=== PATIENT | female | born 1960 | race Caucasian/White ===

== ENCOUNTER 2021-11-10 15:13 | Inpatient (IN) | payer OTHER ==
[2021-11-10] MEDS ORDERED: SODIUM CHLORIDE 0.9% 500 ML INFUS.BAG IV ONE ×2 (16:06→17:23)
[2021-11-10 16:21] LABS: VENOUS BASE EXCESS -6.5 mmol/L (-2-2); VENOUS O2 SATURATION 63.2 % (70-80); VENOUS PCO2 36.1 mmHg (38-52); VENOUS PH 7.331 (7.310-7.410)
[2021-11-10 16:32] LABS: BASO % 0.4 % (0-2.0); HEMATOCRIT 33.4 % (32.4-45.2); HEMOGLOBIN 11.3 GM/dL (10.7-15.3); LYMPH % 5.6 % (8-40); MCH 30.7 pg (25.7-33.7); MEAN CELL VOLUME 90.4 fl (80-96); MEAN PLT VOLUME 9.6 fl (7.5-11.1); MONO % 1.7 % (3.8-10.2); NEUT % 92.3 % (42.8-82.8); PLATELET COUNT 266 10^3/uL (134-434); RBC 3.69 M/mm3 (3.60-5.2); RDW 13.9 % (11.6-15.6); WHITE BLOOD COUNT 8.5 K/mm3 (4.0-10.0)
[2021-11-10 16:38] LABS: INR 0.89 (0.83-1.09); PROTHROMBIN TIME (PATIENT) 10.2 SEC (9.7-13.0)
[2021-11-10 16:40] LABS: ACTIVATED PTT 30.1 SECONDS (25.2-36.5)
[2021-11-10 16:43] LABS: EPI CELLS 3 /uL (0-25.1); HYALINE CASTS 2 /uL (0-3.1); URINE APPEARANCE CLEAR; URINE BILIRUBIN NEGATIVE (NEGATIVE); URINE COLOR YELLOW; URINE GLUCOSE (UA) 3+ (NEGATIVE); URINE KETONE NEGATIVE (NEGATIVE); URINE LEUK ESTERASE 1+ (NEGATIVE); URINE NITRITE POSITIVE (NEGATIVE); URINE PROTEIN NEGATIVE (NEGATIVE); URINE RBC 5 /uL (0-23.9); URINE UROBILINOGEN 0.2 mg/dL (0.2-1.0); URINE WBC 159 /uL (0-25.8)
[2021-11-10 16:45] LABS: CHLORIDE 88 mmol/L (98-107)
[2021-11-10 16:47] LABS: CALCIUM 9.2 mg/dL (8.5-10.1)
[2021-11-10 16:48] LABS: ALBUMIN 3.1 g/dl (3.4-5.0); BLOOD UREA NITROGEN 40.3 mg/dL (7-18); CO2 20 mmol/L (21-32); MAGNESIUM 1.7 mg/dL (1.8-2.4)
[2021-11-10 16:51] LABS: CREATININE 1.9 mg/dL (0.55-1.3); PHOSPHOROUS 4.5 mg/dL (2.5-4.9); SGOT/AST 71 U/L (15-37); SGPT/ALT 26 U/L (13-61)
[2021-11-10 16:52] LABS: BILIRUBIN,TOTAL 0.6 mg/dL (0.2-1)
[2021-11-10 16:54] LABS: ALK PHOS 201 U/L (45-117)
[2021-11-10 17:09] LABS: ANISOCYTOSIS 1+; MACROCYTOSIS 0
[2021-11-10 17:26] LABS: URINE BACTERIA 778 /uL (0-1359)
[2021-11-10] MEDS ORDERED: CEFTRIAXONE 1 GM in DEXTROSE 5%-WATER - 50 ML IVPB ONE (18:16)
[2021-11-10] MEDS ORDERED: ACETAMINOPHEN 325 MG TABLET (FP) PO PRN (18:22)
[2021-11-10] MEDS ORDERED: INSULIN REGULAR HUMAN 100 UNITS/ML *VIAL IVPUSH ONE (18:24)
[2021-11-10] MEDS ORDERED: CEFTRIAXONE 1 GM/50 ML BAG ONE (18:32)
[2021-11-10] MEDS ORDERED: INSULIN REGULAR HUMAN 100 UNITS/ML *VIAL ONE (18:33)
[2021-11-10 18:44] LABS: ANION GAP 11 MMOL/L (8-16); GLUCOSE,RANDOM 696 mg/dL (74-106); SODIUM 118 mmol/L (136-145)
[2021-11-10] MEDS ORDERED: MAGNESIUM SULF 50% (8.12 MEQ/2 ML-1 GM VIAL) IVPB ONE (18:47)
[2021-11-10] MEDS ORDERED: MAGNESIUM OXIDE 400 MG TABLET (FP) PO ONE (18:55)
[2021-11-10 19:02] LABS: CHLORIDE 94 mmol/L (98-107); SODIUM 125 mmol/L (136-145)
[2021-11-10 19:04] LABS: CALCIUM 8.8 mg/dL (8.5-10.1)
[2021-11-10 19:05] LABS: ALBUMIN 3.3 g/dl (3.4-5.0); BLOOD UREA NITROGEN 40.6 mg/dL (7-18); CO2 21 mmol/L (21-32)
[2021-11-10 19:08] LABS: CREATININE 1.8 mg/dL (0.55-1.3); SGOT/AST 19 U/L (15-37); SGPT/ALT 20 U/L (13-61)
[2021-11-10 19:10] LABS: BILIRUBIN,TOTAL 0.4 mg/dL (0.2-1); TOT PROT 7.4 g/dl (6.4-8.2)
[2021-11-10 19:11] LABS: ALK PHOS 197 U/L (45-117)
[2021-11-10] MEDS: SODIUM CHLORIDE 1,000 ML IV SCH (19:12)
[2021-11-10 19:18] LABS: ANION GAP 10 MMOL/L (8-16); GLUCOSE,RANDOM 657 mg/dL (74-106)
[2021-11-10] MEDS ORDERED: MAGNESIUM OXIDE 400 MG TABLET (FP) ONE (19:22)
[2021-11-10] MEDS ORDERED: MAGNESIUM SULFATE IN WATER 2 GM/50 ML IVPB IVPB ONE (19:23)
[2021-11-10] MEDS ORDERED: CALCIUM GLUC IN NACL, ISO-OSM 1 GM/50 ML BAG IVPB ONE ×2 (21:36→22:14)
[2021-11-10 21:44] LABS: CHLORIDE 98 mmol/L (98-107); SODIUM 127 mmol/L (136-145)
[2021-11-10 21:45] LABS: CALCIUM 8.5 mg/dL (8.5-10.1)
[2021-11-10 21:46] LABS: BLOOD UREA NITROGEN 42.2 mg/dL (7-18); CO2 16 mmol/L (21-32)
[2021-11-10 21:49] LABS: CREATININE 1.9 mg/dL (0.55-1.3); SGOT/AST 17 U/L (15-37); SGPT/ALT 18 U/L (13-61)
[2021-11-10 21:51] LABS: BILIRUBIN,TOTAL 0.2 mg/dL (0.2-1); TOT PROT 6.7 g/dl (6.4-8.2)
[2021-11-10 21:52] LABS: ALK PHOS 181 U/L (45-117)
[2021-11-10 21:54] VITALS: RESP 18
[2021-11-10 21:54] LABS: ANION GAP 12 MMOL/L (8-16); GLUCOSE,RANDOM 641 mg/dL (74-106)
[2021-11-10] MEDS ORDERED: SODIUM ZIRCONIUM CYCLOSILICATE (LOKELMA) 5 GM PACKET ONE (22:13)
[2021-11-10] MEDS: SODIUM ZIRCONIUM CYCLOSILICATE (LOKELMA) 5 GM PACKET PO SCH (22:34)
[2021-11-10] MEDS: INSULIN (NOVOLOG) ASPART 100 UNITS/ML 10ML VIAL SQ SCH (22:40)
[2021-11-10 23:29] VITALS: BMI 22.6
[2021-11-11] MEDS ORDERED: INSULIN (NOVOLOG) ASPART 100 UNITS/ML 10ML VIAL SQ ONE (00:45)
[2021-11-11] MEDS: INSULIN (NOVOLOG) ASPART 100 UNITS/ML 10ML VIAL SQ SCH ×4 (06:44→21:23)
[2021-11-11 10:03] LABS: BASO % 0.3 % (0-2.0); HEMATOCRIT 31.6 % (32.4-45.2); HEMOGLOBIN 10.6 GM/dL (10.7-15.3); LYMPH % 13.6 % (8-40); MCH 29.7 pg (25.7-33.7); MCHC 33.7 g/dl (32.0-36.0); MEAN CELL VOLUME 88.2 fl (80-96); MEAN PLT VOLUME 9.1 fl (7.5-11.1); MONO % 7.8 % (3.8-10.2); NEUT % 78.3 % (42.8-82.8); PLATELET COUNT 308 10^3/uL (134-434); RBC 3.58 M/mm3 (3.60-5.2); RDW 13.9 % (11.6-15.6); WHITE BLOOD COUNT 11.5 K/mm3 (4.0-10.0)
[2021-11-11] MEDS: SODIUM ZIRCONIUM CYCLOSILICATE (LOKELMA) 5 GM PACKET PO SCH (10:11)
[2021-11-11] MEDS: ENOXAPARIN NA (PORCINE) 30 MG/0.3 ML DISP.SYRIN SQ SCH (10:11)
[2021-11-11 12:31] LABS: CALCIUM 9.3 mg/dL (8.5-10.1)
[2021-11-11 12:32] LABS: BLOOD UREA NITROGEN 36.3 mg/dL (7-18)
[2021-11-11 12:35] LABS: CREATININE 1.5 mg/dL (0.55-1.3)
[2021-11-11 12:36] LABS: BILIRUBIN,TOTAL 0.2 mg/dL (0.2-1); TOT PROT 6.8 g/dl (6.4-8.2)
[2021-11-11] MEDS: SODIUM CHLORIDE 1,000 ML IV SCH ×2 (13:35→21:16)
[2021-11-11] MEDS: CEFUROXIME AXETIL 250 MG TABLET PO SCH (21:16)
[2021-11-12] MEDS: SODIUM CHLORIDE 1,000 ML IV SCH (02:49)
[2021-11-12] MEDS: INSULIN (NOVOLOG) ASPART 100 UNITS/ML 10ML VIAL SQ SCH ×2 (06:22→11:27)
[2021-11-12 08:30] VITALS: BP 145/75; PULSE 84; TEMP 98.5
[2021-11-12] MEDS: CEFUROXIME AXETIL 250 MG TABLET PO SCH (09:08)
[2021-11-12] MEDS: ENOXAPARIN NA (PORCINE) 30 MG/0.3 ML DISP.SYRIN SQ SCH (09:08)
[2021-11-12] MEDS ORDERED: INSULIN (NOVOLOG) ASPART 100 UNITS/ML 10ML VIAL ONE (11:26)
[2021-11-12] MEDS ORDERED: SODIUM ZIRCONIUM CYCLOSILICATE (LOKELMA) 5 GM PACKET PO SCH (14:30)
== END 2021-11-12 15:31 | disposition home or self-care (01) | DRG 638 ==
LOC: JER 15:13 → JERBED 18:15 → J6S 23:38
PROVIDERS: ADMIT Internal Medicine; ATTEND Internal Medicine
DX: E11.65 Type 2 diabetes mellitus with hyperglycemia (principal); E87.1 Hypo-osmolality and hyponatremia; N17.9 Acute kidney failure, unspecified; N39.0 Urinary tract infection, site not specified; E87.5 Hyperkalemia; E86.0 Dehydration
CPT/HCPCS: 36415; 76775-TC; 80053; 81003; 82010; 82550; 82553; 82803; 82962; 83605; 83735; 83880; 84100; 84132; 84484; 85025; 85610; 85730; 87040; 87086; 93005; 93010; 93971-TC; 99285-25; C9803-CS; U0003; U0005

== ENCOUNTER 2021-11-18 08:32 | Emergency (ER) | payer OTHER ==
[2021-11-18 08:46] VITALS: BMI 22.8
[2021-11-18] MEDS ORDERED: ONDANSETRON 4 MG/2 ML VIAL IVPUSH ONE (09:39)
[2021-11-18] MEDS ORDERED: SODIUM CHLORIDE 0.9% 500 ML INFUS.BAG IV ONE (09:39)
[2021-11-18] MEDS ORDERED: ONDANSETRON 4 MG/2 ML VIAL ONE (10:13)
[2021-11-18 10:27] LABS: BASO % 0.5 % (0-2.0); EOS % 1.2 % (0-4.5); HEMATOCRIT 33.2 % (32.4-45.2); HEMOGLOBIN 11.8 GM/dL (10.7-15.3); LYMPH % 26.3 % (8-40); MCH 29.5 pg (25.7-33.7); MCHC 35.6 g/dl (32.0-36.0); MEAN PLT VOLUME 7.7 fl (7.5-11.1); MONO % 10.2 % (3.8-10.2); NEUT % 61.8 % (42.8-82.8); PLATELET COUNT 384 10^3/uL (134-434); RDW 13.3 % (11.6-15.6); WHITE BLOOD COUNT 6.5 K/mm3 (4.0-10.0)
[2021-11-18 10:40] LABS: ALBUMIN 3.6 g/dl (3.4-5.0); BLOOD UREA NITROGEN 20.6 mg/dL (7-18); CALCIUM 9.2 mg/dL (8.5-10.1); VENOUS BASE EXCESS 5.4 mmol/L (-2-2); VENOUS O2 SATURATION 80.3 % (70-80); VENOUS PCO2 39.9 mmHg (38-52); VENOUS PH 7.483 (7.310-7.410)
[2021-11-18 10:41] LABS: MAGNESIUM 1.4 mg/dL (1.8-2.4)
[2021-11-18 10:43] LABS: CREATININE 1.1 mg/dL (0.55-1.3)
[2021-11-18 10:45] LABS: BILIRUBIN,TOTAL 0.5 mg/dL (0.2-1); TOT PROT 7.6 g/dl (6.4-8.2)
[2021-11-18] MEDS ORDERED: MAG HYDROX/AL HYDROX/SIMETH -MYLANTA- ORAL SUSPENSION PO ONE (10:54)
[2021-11-18] MEDS ORDERED: FAMOTIDINE 20 MG/50 ML IVPB 20 MG/50 ML MG IVPB ONE ×2 (10:54→11:01)
[2021-11-18] MEDS ORDERED: MAG HYDROX/AL HYDROX/SIMETH 30 ML UNIT-DOSE CUP ONE (11:01)
[2021-11-18] MEDS ORDERED: MAGNESIUM SULF 50% (8.12 MEQ/2 ML-1 GM VIAL) IVPB ONE (11:11)
[2021-11-18] MEDS ORDERED: MAGNESIUM 1GM/D5W - 1 GM/100 ML IVPB IVPB ONE (11:39)
[2021-11-18 12:14] LABS: EPI CELLS 1 /uL (0-25.1); HYALINE CASTS 0 /uL (0-3.1); PH,URINE 7.5 (5.0-8.0); URINE APPEARANCE CLEAR; URINE BACTERIA 8735 /uL (0-1359); URINE BILIRUBIN NEGATIVE (NEGATIVE); URINE COLOR YELLOW; URINE GLUCOSE (UA) NEGATIVE (NEGATIVE); URINE KETONE NEGATIVE (NEGATIVE); URINE LEUK ESTERASE 1+ (NEGATIVE); URINE NITRITE NEGATIVE (NEGATIVE); URINE PROTEIN NEGATIVE (NEGATIVE); URINE RBC 9 /uL (0-23.9); URINE UROBILINOGEN 0.2 mg/dL (0.2-1.0); URINE WBC 181 /uL (0-25.8)
[2021-11-18 12:19] LABS: CALCIUM 8.1 mg/dL (8.5-10.1)
[2021-11-18 17:15] VITALS: BP 107/59; PULSE 80; RESP 16; TEMP 98
== END 2021-11-18 17:00 | disposition home or self-care (01) ==
LOC: JER 08:32
PROC: 3E033GC Introduction of Other Therapeutic Substance into Peripheral Vein, Percutaneous Approach (ICD-10-PCS; principal; 2021-11-18)
DX: K57.92 Diverticulitis of intestine, part unspecified, without perforation or abscess without bleeding (principal); N83.201 Unspecified ovarian cyst, right side; N39.0 Urinary tract infection, site not specified
CPT/HCPCS: 36415; 71045-TC-FY; 74177-TC; 80048; 80053; 81003; 82010; 82803; 82962; 83605; 83690; 83735; 84484; 85025; 87086; 87186; 93005; 93010; 99285-25

== ENCOUNTER 2021-11-20 09:53 | Inpatient (IN) | payer OTHER ==
[2021-11-20] MEDS ORDERED: SODIUM CHLORIDE 0.9% 500 ML INFUS.BAG IV ONE (11:19)
[2021-11-20 12:23] LABS: BASO % 0.2 % (0-2.0); HEMATOCRIT 29.9 % (32.4-45.2); HEMOGLOBIN 10.6 GM/dL (10.7-15.3); LYMPH % 27.1 % (8-40); MCH 30.1 pg (25.7-33.7); MCHC 35.5 g/dl (32.0-36.0); MEAN CELL VOLUME 84.6 fl (80-96); MEAN PLT VOLUME 7.8 fl (7.5-11.1); MONO % 7.5 % (3.8-10.2); NEUT % 64.2 % (42.8-82.8); PLATELET COUNT 350 10^3/uL (134-434); RBC 3.54 M/mm3 (3.60-5.2); RDW 13.4 % (11.6-15.6); WHITE BLOOD COUNT 7.3 K/mm3 (4.0-10.0)
[2021-11-20] MEDS ORDERED: ACETAMINOPHEN 1000 MG/100 ML BAG IVPB ONE (12:24)
[2021-11-20] MEDS ORDERED: PIPERACILLIN/TAZOB 3.375 GM 3.375 GM in DEXTROSE 5%-WATER - 50 ML IVPB ONE (12:24)
[2021-11-20 12:29] LABS: EPI CELLS 12 /uL (0-25.1); HYALINE CASTS 0 /uL (0-3.1); PH,URINE 5.5 (5.0-8.0); URINE APPEARANCE CLOUDY; URINE BACTERIA 3618 /uL (0-1359); URINE BILIRUBIN NEGATIVE (NEGATIVE); URINE COLOR YELLOW; URINE GLUCOSE (UA) NEGATIVE (NEGATIVE); URINE KETONE NEGATIVE (NEGATIVE); URINE LEUK ESTERASE 3+ (NEGATIVE); URINE NITRITE NEGATIVE (NEGATIVE); URINE PROTEIN TRACE (NEGATIVE); URINE RBC 25 /uL (0-23.9); URINE UROBILINOGEN 0.2 mg/dL (0.2-1.0); URINE WBC 1592 /uL (0-25.8)
[2021-11-20 12:44] LABS: CALCIUM 8.7 mg/dL (8.5-10.1)
[2021-11-20 12:45] LABS: ALBUMIN 3.4 g/dl (3.4-5.0); BLOOD UREA NITROGEN 29.6 mg/dL (7-18)
[2021-11-20 12:48] LABS: CREATININE 2.9 mg/dL (0.55-1.3)
[2021-11-20 12:49] LABS: BILIRUBIN,TOTAL 0.4 mg/dL (0.2-1); TOT PROT 6.8 g/dl (6.4-8.2)
[2021-11-20] MEDS ORDERED: PIPERACILLIN/TAZOB 2.25 GM 2.25 GM in DEXTROSE 5%-WATER - 50 ML IVPB ONE (12:55)
[2021-11-20] MEDS ORDERED: ACETAMINOPHEN INJECTION 100 ML IVPB ONE (12:58)
[2021-11-20] MEDS ORDERED: MEROPENEM 500 MG in DEXTROSE 5%-WATER 100 ML IVPB ONE (13:17)
[2021-11-20] MEDS ORDERED: MEROPENEM 500 MG VIAL (RESTRICTED TO ID) IVPB ONE (13:50)
[2021-11-20] MEDS ORDERED: ACETAMINOPHEN 1000 MG/100 ML BAG IVPB PRN (14:48)
[2021-11-20] MEDS ORDERED: PANTOPRAZOLE 40 MG TABLET PO ONE (16:47)
[2021-11-20] MEDS: PANTOPRAZOLE 40 MG TABLET PO SCH (16:58)
[2021-11-20] MEDS ORDERED: SODIUM CHLORIDE 1,000 ML IV SCH (17:00)
[2021-11-20] MEDS: INSULIN SLIDING SCALE (NOVOLOG) 1 VIAL SQ SCH (18:21)
[2021-11-20] MEDS ORDERED: ONDANSETRON 4 MG/2 ML VIAL IVPUSH ONE ×2 (18:25→23:03)
[2021-11-20 18:31] LABS: BLOOD UREA NITROGEN 26.9 mg/dL (7-18); CALCIUM 8.2 mg/dL (8.5-10.1)
[2021-11-20 18:35] LABS: CREATININE 2.8 mg/dL (0.55-1.3)
[2021-11-20] MEDS ORDERED: ONDANSETRON 4 MG/2 ML VIAL ONE ×2 (19:19→23:04)
[2021-11-20] MEDS ORDERED: HEPARIN NA (PORCINE) 5,000 UNITS/ML 1ML VIAL ONE (22:09)
[2021-11-20] MEDS: HEPARIN NA (PORCINE) 5,000 UNITS/ML 1ML VIAL SQ SCH (22:15)
[2021-11-21] MEDS ORDERED: ACETAMINOPHEN INJECTION 100 ML IVPB ONE
[2021-11-21] MEDS ORDERED: MEROPENEM 500 MG in DEXTROSE 5%-WATER 100 ML IVPB SCH (02:00)
[2021-11-21] MEDS ORDERED: MEROPENEM 500 MG VIAL (RESTRICTED TO ID) IVPB ONE (02:38)
[2021-11-21] MEDS ORDERED: HEPARIN NA (PORCINE) 5,000 UNITS/ML 1ML VIAL ONE (06:04)
[2021-11-21] MEDS: HEPARIN NA (PORCINE) 5,000 UNITS/ML 1ML VIAL SQ SCH ×3 (06:11→21:14)
[2021-11-21 07:08] LABS: BLOOD UREA NITROGEN 27.4 mg/dL (7-18); MAGNESIUM 1.7 mg/dL (1.8-2.4)
[2021-11-21 07:11] LABS: CREATININE 3.2 mg/dL (0.55-1.3); PHOSPHOROUS 4.9 mg/dL (2.5-4.9)
[2021-11-21] MEDS: INSULIN SLIDING SCALE (NOVOLOG) 1 VIAL SQ SCH ×3 (08:16→17:42)
[2021-11-21] MEDS: SODIUM CHLORIDE 1,000 ML IV SCH (09:30)
[2021-11-21] MEDS: PANTOPRAZOLE 40 MG TABLET PO SCH (12:10)
[2021-11-21 12:40] LABS: BASO % 0.9 % (0-2.0); EOS % 0.7 % (0-4.5); HEMOGLOBIN 10.6 GM/dL (10.7-15.3); MCHC 35.5 g/dl (32.0-36.0); MEAN CELL VOLUME 84.5 fl (80-96); MEAN PLT VOLUME 8.7 fl (7.5-11.1); MONO % 6.2 % (3.8-10.2); NEUT % 69.2 % (42.8-82.8); PLATELET COUNT 330 10^3/uL (134-434); RBC 3.55 M/mm3 (3.60-5.2); RDW 13.5 % (11.6-15.6); WHITE BLOOD COUNT 8.1 K/mm3 (4.0-10.0)
[2021-11-21] MEDS: ERTAPENEM SODIUM 0.5 GM in SODIUM CHLORIDE 50 ML IVPB SCH (13:42)
[2021-11-21 15:01] VITALS: BMI 23.2
[2021-11-21] MEDS ORDERED: DEXTROSE 50%-WATER - 25 GM/50 ML VIAL IVPUSH PRN (20:04)
[2021-11-21] MEDS: D5-1/2NS+10 MEQ KCL - 10 MEQ/1,000 ML INFUS.BAG IV SCH (21:13)
[2021-11-22] MEDS: HEPARIN NA (PORCINE) 5,000 UNITS/ML 1ML VIAL SQ SCH ×3 (06:16→21:18)
[2021-11-22] MEDS: INSULIN SLIDING SCALE (NOVOLOG) 1 VIAL SQ SCH ×3 (06:17→16:44)
[2021-11-22] MEDS: D5-1/2NS+10 MEQ KCL - 10 MEQ/1,000 ML INFUS.BAG IV SCH (06:54)
[2021-11-22] MEDS: PANTOPRAZOLE 40 MG TABLET PO SCH (10:03)
[2021-11-22] MEDS: ERTAPENEM SODIUM 0.5 GM in SODIUM CHLORIDE 50 ML IVPB SCH (10:03)
[2021-11-22 10:36] LABS: BASO % 0.6 % (0-2.0); EOS % 0.8 % (0-4.5); HEMATOCRIT 28.7 % (32.4-45.2); HEMOGLOBIN 10.1 GM/dL (10.7-15.3); LYMPH % 24.6 % (8-40); MCH 30.8 pg (25.7-33.7); MCHC 35.2 g/dl (32.0-36.0); MEAN CELL VOLUME 87.4 fl (80-96); MEAN PLT VOLUME 8.3 fl (7.5-11.1); MONO % 8.2 % (3.8-10.2); NEUT % 65.8 % (42.8-82.8); PLATELET COUNT 301 10^3/uL (134-434); RBC 3.29 M/mm3 (3.60-5.2); RDW 13.4 % (11.6-15.6); WHITE BLOOD COUNT 6.1 K/mm3 (4.0-10.0)
[2021-11-22] MEDS: SODIUM CHLORIDE 1,000 ML IV SCH (10:58)
[2021-11-22 11:07] LABS: ALBUMIN 2.7 g/dl (3.4-5.0); BLOOD UREA NITROGEN 28.2 mg/dL (7-18)
[2021-11-22 11:10] LABS: CREATININE 3.8 mg/dL (0.55-1.3)
[2021-11-22 11:11] LABS: TOT PROT 5.6 g/dl (6.4-8.2)
[2021-11-22 11:12] LABS: BILIRUBIN,TOTAL 0.2 mg/dL (0.2-1)
[2021-11-22] MEDS: BANATROL PLUS POWDER PACKET PO SCH ×2 (17:50→21:17)
[2021-11-22 18:24] LABS: EPI CELLS 12 /uL (0-25.1); HYALINE CASTS 0 /uL (0-3.1); PH,URINE 6.5 (5.0-8.0); URINE APPEARANCE CLEAR; URINE BACTERIA 23 /uL (0-1359); URINE BILIRUBIN NEGATIVE (NEGATIVE); URINE COLOR YELLOW; URINE GLUCOSE (UA) TRACE (NEGATIVE); URINE KETONE NEGATIVE (NEGATIVE); URINE LEUK ESTERASE TRACE (NEGATIVE); URINE NITRITE NEGATIVE (NEGATIVE); URINE PROTEIN NEGATIVE (NEGATIVE); URINE UROBILINOGEN 0.2 mg/dL (0.2-1.0); URINE WBC 14 /uL (0-25.8)
[2021-11-22 18:35] LABS: CREATININE, URINE RANDOM < 13.0 mg/dL (30-150)
[2021-11-22 23:22] LABS: URINE RBC 379.8 /uL (0-23.9)
[2021-11-23] MEDS: HEPARIN NA (PORCINE) 5,000 UNITS/ML 1ML VIAL SQ SCH ×3 (06:30→21:44)
[2021-11-23] MEDS: INSULIN SLIDING SCALE (NOVOLOG) 1 VIAL SQ SCH ×3 (06:35→16:49)
[2021-11-23] MEDS: BANATROL PLUS POWDER PACKET PO SCH ×2 (06:36→21:44)
[2021-11-23 08:10] LABS: BASO % 0.5 % (0-2.0); EOS % 1.7 % (0-4.5); HEMATOCRIT 30.4 % (32.4-45.2); HEMOGLOBIN 10.4 GM/dL (10.7-15.3); LYMPH % 31.6 % (8-40); MCH 29.5 pg (25.7-33.7); MCHC 34.2 g/dl (32.0-36.0); MEAN CELL VOLUME 86.3 fl (80-96); MEAN PLT VOLUME 8.2 fl (7.5-11.1); MONO % 8.6 % (3.8-10.2); NEUT % 57.6 % (42.8-82.8); PLATELET COUNT 356 10^3/uL (134-434); RBC 3.53 M/mm3 (3.60-5.2); RDW 13.5 % (11.6-15.6); WHITE BLOOD COUNT 5.1 K/mm3 (4.0-10.0)
[2021-11-23 08:29] LABS: CALCIUM 8.9 mg/dL (8.5-10.1)
[2021-11-23 08:30] LABS: ALBUMIN 3.2 g/dl (3.4-5.0); BLOOD UREA NITROGEN 27.4 mg/dL (7-18); MAGNESIUM 1.9 mg/dL (1.8-2.4)
[2021-11-23 08:33] LABS: CREATININE 3.5 mg/dL (0.55-1.3); PHOSPHOROUS 4.3 mg/dL (2.5-4.9)
[2021-11-23 08:34] LABS: BILIRUBIN,TOTAL 0.3 mg/dL (0.2-1); TOT PROT 6.4 g/dl (6.4-8.2)
[2021-11-23] MEDS: ERTAPENEM SODIUM 0.5 GM in SODIUM CHLORIDE 50 ML IVPB SCH (09:31)
[2021-11-23] MEDS: PANTOPRAZOLE 40 MG TABLET PO SCH (09:31)
[2021-11-23] MEDS: SODIUM CHLORIDE 1,000 ML IV SCH ×2 (09:33→17:16)
[2021-11-24] MEDS: BANATROL PLUS POWDER PACKET PO SCH ×3 (06:35→23:40)
[2021-11-24] MEDS: INSULIN SLIDING SCALE (NOVOLOG) 1 VIAL SQ SCH ×3 (06:35→16:25)
[2021-11-24] MEDS: HEPARIN NA (PORCINE) 5,000 UNITS/ML 1ML VIAL SQ SCH ×4 (06:35→23:40)
[2021-11-24] MEDS: SODIUM CHLORIDE 1,000 ML IV SCH ×3 (06:43→16:26)
[2021-11-24 08:43] LABS: BASO % 0.7 % (0-2.0); EOS % 1.9 % (0-4.5); HEMATOCRIT 31.4 % (32.4-45.2); HEMOGLOBIN 10.6 GM/dL (10.7-15.3); LYMPH % 35.1 % (8-40); MCH 29.3 pg (25.7-33.7); MCHC 33.7 g/dl (32.0-36.0); MEAN PLT VOLUME 8.5 fl (7.5-11.1); MONO % 7.2 % (3.8-10.2); NEUT % 55.1 % (42.8-82.8); PLATELET COUNT 343 10^3/uL (134-434); RBC 3.61 M/mm3 (3.60-5.2); RDW 13.7 % (11.6-15.6); WHITE BLOOD COUNT 5.6 K/mm3 (4.0-10.0)
[2021-11-24 09:00] LABS: CALCIUM 8.8 mg/dL (8.5-10.1)
[2021-11-24 09:01] LABS: BLOOD UREA NITROGEN 20.6 mg/dL (7-18)
[2021-11-24 09:07] LABS: CREATININE 2.8 mg/dL (0.55-1.3)
[2021-11-24] MEDS: PANTOPRAZOLE 40 MG TABLET PO SCH (09:46)
[2021-11-24] MEDS: ERTAPENEM SODIUM 0.5 GM in SODIUM CHLORIDE 50 ML IVPB SCH (10:28)
[2021-11-25] MEDS: SODIUM CHLORIDE 1,000 ML IV SCH ×3 (02:19→21:53)
[2021-11-25] MEDS: BANATROL PLUS POWDER PACKET PO SCH ×3 (06:31→21:22)
[2021-11-25] MEDS: HEPARIN NA (PORCINE) 5,000 UNITS/ML 1ML VIAL SQ SCH ×3 (06:31→21:22)
[2021-11-25] MEDS: INSULIN SLIDING SCALE (NOVOLOG) 1 VIAL SQ SCH ×3 (08:01→16:28)
[2021-11-25 09:30] LABS: BASO % 1.3 % (0-2.0); EOS % 1.6 % (0-4.5); HEMATOCRIT 31.5 % (32.4-45.2); HEMOGLOBIN 10.6 GM/dL (10.7-15.3); LYMPH % 25.1 % (8-40); MCH 29.5 pg (25.7-33.7); MCHC 33.5 g/dl (32.0-36.0); MEAN CELL VOLUME 88.1 fl (80-96); MEAN PLT VOLUME 8.6 fl (7.5-11.1); MONO % 4.1 % (3.8-10.2); NEUT % 67.9 % (42.8-82.8); PLATELET COUNT 360 10^3/uL (134-434); RBC 3.58 M/mm3 (3.60-5.2); RDW 13.7 % (11.6-15.6); WHITE BLOOD COUNT 6.9 K/mm3 (4.0-10.0)
[2021-11-25] MEDS: PANTOPRAZOLE 40 MG TABLET PO SCH (09:46)
[2021-11-25] MEDS: ERTAPENEM SODIUM 0.5 GM in SODIUM CHLORIDE 50 ML IVPB SCH (09:49)
[2021-11-25 09:55] LABS: ALBUMIN 3.4 g/dl (3.4-5.0); CALCIUM 8.8 mg/dL (8.5-10.1)
[2021-11-25 09:56] LABS: BLOOD UREA NITROGEN 19.2 mg/dL (7-18)
[2021-11-25 09:58] LABS: CREATININE 2.4 mg/dL (0.55-1.3)
[2021-11-25 10:00] LABS: BILIRUBIN,TOTAL 0.4 mg/dL (0.2-1); TOT PROT 7.1 g/dl (6.4-8.2)
[2021-11-26] MEDS ORDERED: INSULIN (NOVOLOG) ASPART 100 UNITS/ML 10ML VIAL ONE (06:13)
[2021-11-26] MEDS: BANATROL PLUS POWDER PACKET PO SCH ×2 (06:15→16:41)
[2021-11-26] MEDS: INSULIN SLIDING SCALE (NOVOLOG) 1 VIAL SQ SCH ×3 (06:15→16:58)
[2021-11-26] MEDS: HEPARIN NA (PORCINE) 5,000 UNITS/ML 1ML VIAL SQ SCH ×2 (06:15→14:32)
[2021-11-26 08:05] VITALS: RESP 18
[2021-11-26 08:13] LABS: BASO % 0.7 % (0-2.0); EOS % 2.3 % (0-4.5); HEMATOCRIT 29.9 % (32.4-45.2); HEMOGLOBIN 10.3 GM/dL (10.7-15.3); LYMPH % 27.9 % (8-40); MCH 30.2 pg (25.7-33.7); MCHC 34.3 g/dl (32.0-36.0); MEAN CELL VOLUME 87.9 fl (80-96); MEAN PLT VOLUME 8.6 fl (7.5-11.1); MONO % 6.7 % (3.8-10.2); NEUT % 62.4 % (42.8-82.8); PLATELET COUNT 326 10^3/uL (134-434); RDW 13.6 % (11.6-15.6); WHITE BLOOD COUNT 6.1 K/mm3 (4.0-10.0)
[2021-11-26 08:33] LABS: CALCIUM 8.9 mg/dL (8.5-10.1)
[2021-11-26 08:34] LABS: BLOOD UREA NITROGEN 19.4 mg/dL (7-18)
[2021-11-26] MEDS ORDERED: metoPROLOL SUCCINATE 25 MG TAB.SR.24H (FP) PO SCH (10:00)
[2021-11-26] MEDS: SODIUM CHLORIDE 1,000 ML IV SCH (10:02)
[2021-11-26] MEDS: ERTAPENEM SODIUM 0.5 GM in SODIUM CHLORIDE 50 ML IVPB SCH (10:03)
[2021-11-26] MEDS: PANTOPRAZOLE 40 MG TABLET PO SCH (10:04)
[2021-11-26 15:24] VITALS: BP 134/76; PULSE 82; TEMP 98.5
[2021-11-27 16:07] LABS: ATYPICAL pANCA <1:20 titer (Neg:<1:20); C-ANCA <1:20 titer (Neg:<1:20)
== END 2021-11-26 17:15 | disposition home or self-care (01) | DRG 690 ==
LOC: JER 09:53 → JERBED 12:49 → J7W 11-21 09:50
PROVIDERS: ADMIT Internal Medicine; ATTEND Internal Medicine
DX: N39.0 Urinary tract infection, site not specified (principal); Z16.12 Extended spectrum beta lactamase (ESBL) resistance; N17.9 Acute kidney failure, unspecified; E87.1 Hypo-osmolality and hyponatremia; I10 Essential (primary) hypertension; K52.9 Noninfective gastroenteritis and colitis, unspecified; E11.65 Type 2 diabetes mellitus with hyperglycemia
CPT/HCPCS: 36415; 76775-TC; 80048; 80053; 81003; 82010; 82570; 82607; 82728; 82746; 82962; 83036; 83520; 83540; 83550; 83605; 83690; 83735; 83930; 83935; 84100; 84155; 84156; 84165; 84300; 85025; 86038; 86140; 86225; 86256; 87040; 87045; 87046; 87086; 87186; 93005; 93010; 97116-GP; 97161-GP; 99285-25; C9803-CS; J1644; U0003; U0005